=== PATIENT | female | born 1995 | race African-American/Black ===

== ENCOUNTER 2022-07-03 08:29 | Emergency (ER) | payer MEDICAID ==
[~2022-07-03] VITALS: Ht 167.6 cm; Wt 82.0 kg
[2022-07-03] MEDS ORDERED: ALBUTEROL (0.083%) 2.5MG/3ML NEB HHN STA (08:54)
[2022-07-03] MEDS ORDERED: IPRATROPIUM BROMIDE (0.02%) 0.5MG/2.5ML NEB HHN STA (08:54)
[2022-07-03] MEDS ORDERED: PREDNISONE 20MG TABLET PO STA (08:54)
[2022-07-03] MEDS ORDERED: ONDANSETRON 4MG ODT PO ONE (09:00)
[2022-07-03] MEDS ORDERED: DEXAMETHASONE 4MG/ML 1ML VIAL IM ONE (09:00)
[2022-07-03] MEDS ORDERED: ACETAMINOPHEN WITH CODEINE 300/30MG TABLET PO ONE (10:00)
[2022-07-03] MEDS ORDERED: PROCHLORPERAZINE 10MG/2ML VIAL IV PRN (10:15)
[2022-07-03 11:39] LABS: BASOPHILS % 0.3 % (0.0-2.0); EOSINOPHILS % 0.1 % (0.0-5.0); HEMATOCRIT. 34.5 % (36.0-48.0); HEMOGLOBIN. 11.5 g/dL (12.0-16.0); LYMPHOCYTES % 8.2 % (20.0-50.0); MEAN CORPUSCULAR HEMOGLOBIN 26.8 pg (28.0-32.0); MEAN CORPUSCULAR VOLUME 80.3 fL (81.0-99.0); MEAN PLATELET VOLUME 7.8 fl (7.4-10.4); MONOCYTES % 8.1 % (2.0-8.0); NEUTROPHILS % 83.3 % (40.0-76.0); PLATELET 222 x1000/uL (130-400); RED BLOOD CELL COUNT 4.29 mill/uL (4.2-5.4); RED CELL DISTRIBUTION WIDTH 15.2 % (11.6-14.6)
[2022-07-03 11:49] LABS: HCG SCREEN NEGATIVE
[2022-07-03 11:50] LABS: CHLORIDE 107 mEq/L (98-107)
[2022-07-03] MEDS ORDERED: IOHEXOL-350 100 ML BOTTLE ONE (14:13)
[2022-07-03] MEDS ORDERED: AMOX1TAB16 MT (14:26)
[2022-07-03] MEDS ORDERED: ALBU6.7H15 INH (14:26)
[2022-07-03] MEDS ORDERED: P50 MT (14:26)
[2022-07-03 14:51] VITALS: BP 144/81
== END 2022-07-03 15:20 | disposition home or self-care (01) ==
LOC: ER 08:45
DX: J18.9 Pneumonia, unspecified organism (principal); J45.901 Unspecified asthma with (acute) exacerbation
CPT/HCPCS: 36415; 71045; 71275; 80053; 83880; 84484; 84703; 85025; 85379; 93005; 94640; 96372; 99285; J1100; Q0162; Q9967; Z7610

== ENCOUNTER 2023-03-21 16:42 | Emergency (ER) | payer MEDICAID ==
[~2023-03-21] VITALS: Ht 160 cm; Wt 95.0 kg
[~2023-03-21 16:42] MED LIST: ALBU6.7H15 INH; AMOX1TAB16 MT; P50 MT
[2023-03-21 16:43] VITALS: BP 138/60; PULSE 88; RESP 16; TEMP 98.2; O2SAT 99
== END 2023-03-21 17:50 | disposition left against medical advice (07) ==
LOC: ER 16:42
DX: J10.1 Influenza due to other identified influenza virus with other respiratory manifestations (principal); Z53.21 Procedure and treatment not carried out due to patient leaving prior to being seen by health care provider
CPT/HCPCS: 99281